=== PATIENT | female | born 1985 | race Hispanic/Latino ===

== ENCOUNTER 2016-12-12 22:18 | Emergency (ER) | payer SELFPAY ==
[2016-12-12] MEDS ORDERED: Adacel (T-DAP) 0.5 ML VIAL ONE (22:44)
== END 2016-12-12 23:00 | disposition home or self-care (01) ==
LOC: NAV ERS 22:18
DX: S01.81XA Laceration without foreign body of other part of head, initial encounter (principal); E03.9 Hypothyroidism, unspecified; Z79.899 Other long term (current) drug therapy; W18.30XA Fall on same level, unspecified, initial encounter
CPT/HCPCS: 90471; 90715